=== PATIENT | male | born 1955 | race Caucasian/White ===

== ENCOUNTER 2022-10-25 10:24 | Emergency (ER) | payer MEDICARE, BC ==
[~2022-10-25] VITALS: Ht 180.3 cm; Wt 70.0 kg
[2022-10-25] MEDS ORDERED: ipratropium/albuterol 3ml nebule NEB ONE (10:40)
[2022-10-25 11:09] LABS: BASOPHILS # (AUTO) 0.1 X10'3 (0-0.2); EOSINOPHILS # (AUTO) 0.1 X10'3 (0-0.9); EOSINOPHILS % (AUTO) 1.6 % (0-6); HEMATOCRIT 42.9 % (42.0-52.0); HEMOGLOBIN 14.8 g/dl (14.0-17.9); LYMPHOCYTES % (AUTO) 22.2 % (21-51); MEAN CORPUSCULAR HEMOGLOBIN 32.2 PG (27.0-31.0); MEAN CORPUSCULAR HGB CONC 34.4 g/dL (33.0-36.5); MEAN CORPUSCULAR VOLUME 93.6 FL (78-98); MEAN PLATELET VOLUME 6.7 FL (7.4-10.4); MONOCYTES % (AUTO) 11.2 % (2-12); NEUTROPHILS # (AUTO) 5.8 X10'3 (1.8-7.7); PLATELET COUNT 382 X10'3 (140-440); RED BLOOD COUNT 4.58 X10'6 (4.70-6.10)
[2022-10-25 11:29] LABS: ALANINE AMINOTRANSFERASE 34 U/L (12-78); ALBUMIN/GLOBULIN RATIO 1.3 (1.1-1.5); ALKALINE PHOSPHATASE 56 IU/L (46-116); ANION GAP 9 (8-16); ASPARTATE AMINO TRANSFERASE 27 U/L (10-37); BILIRUBIN,TOTAL 0.7 MG/DL (0.1-1.0); BLOOD UREA NITROGEN 6 MG/DL (7-18); BUN/CREATININE RATIO 7.3 (5.4-32.0); CALCIUM 9.2 MG/DL (8.5-10.1); CHLORIDE 99 MMOL/L (99-107); CREATININE 0.82 MG/DL (0.60-1.10); GLUCOSE 120 MG/DL (70-104); POTASSIUM 3.8 MMOL/L (3.5-5.1); SODIUM 133 MMOL/L (135-145); TOTAL CARBON DIOXIDE 25.4 MMOL/L (24-32); eGFR > 90 ML/MIN
[2022-10-25] MEDS ORDERED: methylPREDNISolone sod succ 125mg/2ml vial IV ONE (11:40)
[2022-10-25] MEDS ORDERED: AZIT-21 PO (12:54)
[2022-10-25] MEDS ORDERED: PRED10TA23 PO (12:54)
[2022-10-25 13:03] VITALS: BP 137/76
== END 2022-10-25 13:07 | disposition home or self-care (01) ==
LOC: ER 10:26
DX: J45.901 Unspecified asthma with (acute) exacerbation (principal)
CPT/HCPCS: 36415; 71045; 80053; 83880; 84484; 85025; 93005; 94640; 96374; 99285; J2930; 94760

== ENCOUNTER 2022-11-08 22:37 | Emergency (ER) | payer MEDICARE, BC ==
[~2022-11-08] VITALS: Ht 180.3 cm; Wt 65.9 kg
[~2022-11-08 22:37] MED LIST: PRED10TA23 PO
[2022-11-08 23:09] VITALS: BP 134/77
[2022-11-09] MEDS ORDERED: LORazepam 1 MG tablet PO ONE (00:50)
--- NOTE | 2022-11-09 02:04 | NUR ---
Pt has wheezing BL. new order for SVN from respiratory.
[2022-11-09] MEDS ORDERED: ipratropium/albuterol 3ml nebule NEB ONE (02:05)
== END 2022-11-09 04:10 | disposition home or self-care (01) ==
LOC: ER 22:37
DX: J44.1 Chronic obstructive pulmonary disease with (acute) exacerbation (principal); F17.200 Nicotine dependence, unspecified, uncomplicated; Z88.0 Allergy status to penicillin
CPT/HCPCS: 71045; 94640; 99283